=== PATIENT | female | born 1950 | race Caucasian/White ===

== ENCOUNTER 2018-05-19 11:12 | Emergency (ER) | payer OTHER, SELFPAY ==
[2018-05-19] VITALS (14 sets, daily range): BP systolic 108–140; BP diastolic 69–95; PULSE 66–132; RESP 10–21; TEMP 37.1; O2SAT 98–100; BMI 26.2
--- NOTE | 2018-05-19 11:53 | EKG12_ITS ---
Test Reason : Blood Pressure : / mmHG Vent. Rate : 066 BPM Atrial Rate : 066 BPM P-R Int : 174 ms QRS Dur : 088 ms QT Int : 394 ms P-R-T Axes : 078 -65 038 degrees QTc Int : 413 ms Normal sinus rhythm Left anterior fascicular block Cannot rule out Anterior infarct , age undetermined Abnormal ECG Confirmed by BERNICE AMBROSIO, DARLIN ([id number]), electronic news gathering editor BAO RYAN ([id number]) on 05/22/2018 3:22:14 PM Referred By: SOREN Confirmed By:DARLIN QUEEN MD
[2018-05-19 12:01] LABS: Absolute Lymphocyte Count 1.57 X10^3/ul (0.83-4.51); Absolute Neutrophil Count 4.6 X10^3/uL (2.0-7.7); Basophil# 0.02 X10^3/uL; Basophil% 0.3 % (0-1); Eosinophil# 0.07 X10^3/uL; Hematocrit 36.3 % (37-47); Hemoglobin 12.1 g/dl (12.0-15.0); Lymphocyte # 1.57 X10^3/ul (4.0); Lymphocyte % 23.2 % (19-41); Mean Corp Hgb Conc 33.3 g/gl (32-36); Mean Corpuscular Hgb 30.6 pg (27.0-32.0); Mean Corpuscular Volume 91.9 fL (81-99); Mean Platelet Vol. 9.3 fl (6.2-12.0); Monocyte# 0.51 X10^3/uL; Monocyte% 7.5 % (0-10); Neutrophil % 67.9 % (47-70); Platelet Count 261 K/mm3 (150-450); RBC Distribution Width CV 14.5 % (11.6-14.6); RBC Distribution Width SD 48.8 fl (35.1-43.9); Red Blood Count 3.95 M/mm3 (4.2-5.4); White Blood Count 6.8 K/mm3 (4.4-11.0)
[2018-05-19 12:03] LABS: POSITIVE COUNT NO; POSITIVE DIFFERENTIAL NO; POSITIVE MORPHOLOGY NO
--- NOTE | 2018-05-19 12:10 | RAD_ITS ---
STUDY: X-RAY CHEST REASON FOR EXAM: Female, 67 years old. Chest pain. TECHNIQUE: Single AP portable view of the chest. COMPARISON: None. FINDINGS: EKG electrodes are seen. Hyperinflation. There is no demonstrated pleural abnormality. There is mild cardiac enlargement. Normal mediastinum and kt. Normal visualized pulmonary arteries. There is atherosclerotic tortuosity of the aortic arch and descending thoracic aorta. There are diffuse degenerative changes of the visualized thoracic spine. Normal visualized ribs, clavicles, and shoulders. There is no demonstrated abnormality of the visualized soft tissue structures of the upper abdomen. RAD/Chest 1 View (Portable) IMPRESSION: No acute abnormality is seen. Electronically Signed: Román Restrepo MD at 12:36 EST , Service support ,
[2018-05-19] MEDS: dilTIAZem 25 MG/5 ML Vial 10 MG IV BOLUS (12:12)
[2018-05-19 12:19] LABS: ALB/GLOB Ratio 1.3 RATIO (0.9-2.4); AST(SGOT) 22 U/L (15-37); Alanine Aminotransfer ALT/SGPT 27 U/L (13-56); Albumin, Serum 3.8 g/dL (3.2-5.0); Alkaline Phosphatase 67 U/L (45-117); Anion Gap 8 (5-15); BUN 12 mg/dL (7-18); BUN/Creat Ratio 16.2 RATIO (10-20); Calcium,Total 8.6 mg/dL (8.5-10.1); Chloride 103 mmol/L (98-107); Creatinine, Serum 0.74 mg/dL (0.55-1.02); EST Glomerular Filtration Rate 82 mL/min (>60); Est Glom Filt Rate - Afr Amer 100 mL/min (>60); Estimated Creatinine Clearance 43.92 ml/min; Glucose 99 mg/dL (74-106); Potassium 4.4 mmol/L (3.5-5.1); Protein, Total 6.8 g/dL (6.4-8.2); Sodium Level 138 mmol/L (136-145)
[2018-05-19] MEDS: Propofol 200 MG/20 ML Vial IV BOLUS (15:50)
--- NOTE | 2018-05-19 15:55 | EKG12_ITS ---
Test Reason : CP Blood Pressure : / mmHG Vent. Rate : 121 BPM Atrial Rate : 129 BPM P-R Int : 000 ms QRS Dur : 082 ms QT Int : 306 ms P-R-T Axes : 000 -65 054 degrees QTc Int : 434 ms Atrial fibrillation with rapid ventricular response Left anterior fascicular block Abnormal ECG Confirmed by BERNICE AMBROSIO, DARLIN ([id number]), online editor BAO RYAN ([id number]) on 05/22/2018 3:22:28 PM Referred By: SOREN Confirmed By:DARLIN QUEEN MD
--- NOTE | 2018-05-19 16:37 | ED.VISSUMM ---
- ER Visit Summary Date of Service: 05/19/18 Chief Complaint: Atrial fibrillation History of Present Illness: The patient is a 67 F who notes a history of paroxysmal atrial fibrillation. Patient takes diltiazem 360 once a day and metoprolol 25 mg twice a day. She is also on Pradaxa. She denies missing any doses of Pradaxa. She sees cardiology at [place]. She states that on Friday she went into atrial fibrillation and is not come out of it. She feels poorly when she is in it. No syncope. No recent falls. No chest pains. Physical Examination: Afebrile blood pressure 140/72 with a heart rate of 112 respirations are 21 pulse ox 100% Gen: Well-nourished well-developed Head: Normocephalic atraumatic Eyes: Perrl EOMI ENT: TMs clear no rhinorrhea moist mucous membranes Neck: Supple no lymphadenopathy no JVD nontender CVS: Rhythm and tachycardic no murmurs normal S1-S2 Respiratory: No distress clear to auscultation bilaterally chest nontender Abdomen: Soft nontender nondistended normal bowel sounds no masses Back: Nontender Extremity: Nontender no edema Skin: Normal color no rash Neuro: alert orientated ?3 CN II-XII intact normal strength sensation reflexes gait cerebellar Psych: Normal affect normal mood Test Results: EKG shows atrial fibrillation with RVR at a rate of 121. CBC chemistries liver troponin negative. Chest x-ray with a normal mediastinal silhouette Emergency Department Course and Treatment: I spoke with the patient's on-call garment supervisor. As she has not missed any doses of Pradaxa and she has not converted with IV Cardizem plan will be cardioversion. Patient provided informed consent was placed on the monitor. Patient received 0.5 mg/kg bolus of propofol followed by 0.25 mg/kg aliquots until adequate sedation was achieved. Once sedation was achieved a single synchronized 200 J shock was delivered which resulted in normal sinus rhythm. She was allowed to recover. Patient had no episodes of hypotension or apnea during the sedation. She is remained in normal sinus rhythm and repeat EKG was performed. Patient will be discharged home to have early follow-up with her garment supervisor. Impression: 1. Proximal atrial fibrillation with RVR 2. Procedural sedation by physician 3. Electrical cardioversion by physician This note was generated with Dragon dictation software. It may contain incorrect words, spelling, and punctuation that were not noted in review of the chart prior to signing ED Disposition - Plan for ED Patient: Disposition: Home or Assisted Living Chief Complaint: Chest Pain Instructions: Discharge Instructions for Atrial Fibrillation Additional Instructions: Please call your garment supervisor to arrange early follow-up. Continue taking all of your medications including your blood thinner Pradaxa
--- NOTE | 2018-05-19 16:42 | ED.DCSUM_ITS ---
- ER Visit Summary Date of Service: 05/19/18 Chief Complaint: Atrial fibrillation History of Present Illness: The patient is a 67 F who notes a history of paroxysmal atrial fibrillation. Patient takes diltiazem 360 once a day and metoprolol 25 mg twice a day. She is also on Pradaxa. She denies missing any doses of Pradaxa. She sees cardiology at [place]. She states that on Friday she went into atrial fibrillation and is not come out of it. She feels poorly when she is in it. No syncope. No recent falls. No chest pains. Physical Examination: Afebrile blood pressure 140/72 with a heart rate of 112 respirations are 21 pulse ox 100% Gen: Well-nourished well-developed Head: Normocephalic atraumatic Eyes: Perrl EOMI ENT: TMs clear no rhinorrhea moist mucous membranes Neck: Supple no lymphadenopathy no JVD nontender CVS: Rhythm and tachycardic no murmurs normal S1-S2 Respiratory: No distress clear to auscultation bilaterally chest nontender Abdomen: Soft nontender nondistended normal bowel sounds no masses Back: Nontender Extremity: Nontender no edema Skin: Normal color no rash Neuro: alert orientated ?3 CN II-XII intact normal strength sensation reflexes gait cerebellar Psych: Normal affect normal mood Test Results: EKG shows atrial fibrillation with RVR at a rate of 121. CBC chemistries liver troponin negative. Chest x-ray with a normal mediastinal silhouette Emergency Department Course and Treatment: I spoke with the patient's on-call painting trades worker. As she has not missed any doses of Pradaxa and she has not converted with IV Cardizem plan will be cardioversion. Patient provided inform ed consent was placed on the monitor. Patient received 0.5 mg/kg bolus of propofol followed by 0.25 mg/kg aliquots until adequate sedation was achieved. Once sedation was achieved a single synchronized 200 J shock was delivered which resulted in normal sinus rhythm. She was allowed to recover. Patient had no episodes of hypotension or apnea during the sedation. She is remained in normal sinus rhythm and repeat EKG was performed. Patient will be discharged home to have early follow-up with her painting trades worker. Impression: 1. Proximal atrial fibrillation with RVR 2. Procedural sedation by physician 3. Electrical cardioversion by physician This note was generated with Dragon dictation software. It may contain incorrect words, spelling, and punctuation that were not noted in review of the chart prior to signing ED Disposition - Plan for ED Patient: Disposition: Home or Assisted Living Chief Complaint: Chest Pain Instructions: Discharge Instructions for Atrial Fibrillation Additional Instructions: Please call your painting trades worker to arrange early follow-up. Continue taking all of your medications including your blood thinner Pradaxa
== END 2018-05-19 17:10 | disposition home or self-care (01) ==
PROVIDERS: Emergency Provider Emergency Medicine; Family Provider Family Medicine; PCP Family Medicine
DX: I48.0 Paroxysmal atrial fibrillation (principal); K21.9 Gastro-esophageal reflux disease without esophagitis; I10 Essential (primary) hypertension; E78.00 Pure hypercholesterolemia, unspecified; G47.30 Sleep apnea, unspecified; Z79.02 Long term (current) use of antithrombotics/antiplatelets; Z79.899 Other long term (current) drug therapy
CPT/HCPCS: 92960; 71045; 80053; 84484; 85025; 93005; 96374; 96375; 99284; J7040; A4216

== ENCOUNTER → 2018-05-26 12:14 | Outpatient (CLI) | payer OTHER, SELFPAY ==
[2018-05-26 11:00] VITALS: BMI 24.7
[2018-05-26 12:57] LABS: T4 Total, Thyroxin 7.4 ug/dL (4.8-13.9); Thyroid Stim Hormone (TSH) 1.94 uIU/mL (0.358-3.74)
== END ==
PROVIDERS: Family Provider Family Medicine; PCP Family Medicine; Referring Provider Internal Medicine Cardiovascular Disease; Visit Provider Internal Medicine Cardiovascular Disease
DX: I48.91 Unspecified atrial fibrillation (principal)
CPT/HCPCS: 36415; 84436; 84443

== ENCOUNTER → 2018-06-15 08:39 | Outpatient (CLI) | payer SELFPAY ==
[2018-05-26 11:00] VITALS: BMI 24.7
--- NOTE | 2018-06-15 08:40 | STE_ITS ---
Reason For Study: Chest pain Stress Results Protocol: MODIFIED AARON Maximum Predicted HR: 151 bpm Target HR: 128 bpm % Maximum Predicted HR: 159 % Heart Stage Duration Rate BP Comment (mm:ss) (bpm) BASELINE 72 142/74 NO CHEST PAIN, NO SOB, STATES FEELS SLIGHTLY FUNNY IN THE HEAD, STAGE 0 3:00 121 152/82ENCOURAGED TO LOOK FORWARD States feeling more dizziness, while walking. BP attempted to be STAGE obtained, she then states her dizziness worse. EKG showed SVT. Stopped 04/22 2:41 240 / Treadmill. Echo obtained.Had her valsalva manuver and cough, heart rate decreased to 205. Dr. Moore came to room. Recovery 95 130/70 Stress Duration: 5:41 mm:ss Maximum Stress HR: 240 bpm Baseline Echocardiogram Findings The estimated ejection fraction is 65 %. Stress Echo Wall motion Data Resting WM Intermediate WM Stress WM Resting Wall Motion Wall Motion Stress No regional wall motion No regional wall motion abnormalities noted. abnormalities noted. EKG Data Normal intervals are noted. Interpretation Summary Heart rate decreased and converted back to Normal Sinus Rhythm. Vitals Stable. Patient dressed and snack given. She was released home with family. The estimated ejection fraction is 65 %. Normal, adequate, modified Aaron treadmill echocardiogram. Negative for ischemia by EKG and echocardiographic criteria. No anginal symptoms noted. Patient did develop supraventricular tachycardia at a rate of 144-222 bpm at 5 minutes 35 seconds into modified Aaron exercise. SVT persisted until 4 minutes 10 seconds into recovery and spontaneously broke with vagal maneuvers. During recovery she had rare PVCs and ventricular couplets and rare PACs. No associated wall motion abnormalities noted on echocardiogram. Appropriate blood pressure response to exercise. Decreased exercise capacity for age. Final LVEF is 75%. Ordering Physician: Chapo Melendez MD Referring Physician: Chapo Melendez MD Performed By: Mary Ellen Raymundo RDCS, RVT
--- NOTE | 2018-06-15 08:40 | ECHOD_ITS ---
Reason For Study: AFIB Procedure This was a 2D Doppler, Color Flow transthoracic echocardiogram. Exam performed in department. Left Ventricle Normal size and thickness. The estimated ejection fraction is 65 %. Normal diastology for age. No regional wall motion abnormalities noted. Right Ventricle Normal size and thickness. Normal systolic function. Atria Normal left atrium. Normal right atrium. Normal atrial septum. Mitral Valve Mild diffuse mitral valve thickening. Moderate mitral annular calcification extending into the posterior leaflet. Equivocal mitral valve prolapse. Mild (1+) eccentric mitral valve insufficiency. Tricuspid Valve Normal tricuspid valve. Mild to moderate (1-2+) eccentric tricuspid valve insufficiency. Right ventricular systolic pressure estimated to be 38 mmHg. Mild pulmonary hypertension. Aortic Valve Trisinus/trileaflet aortic valve. Mild focal aortic valve thickening. Mild diffuse aortic valve thickening. There is no aortic stenosis. Pulmonic Valve Normal pulmonic valve. Great Vessels Normal aortic root. Normal arch. Normal inferior vena cava. Inferior vena cava collapse with sniff. Pericardium/Pleural No pericardial effusion. MMode/2D Measurements & Calculations LVIDd: 4.6 cm IVSd: 0.90 cm Ao root diam: 3.8 cm LVIDs: 3.1 cm LVPWd: 0.89 cm RVDd: 4.0 cm FS: 32.0 % LAV(MOD-bp): 53.8 ml LA A4 area: 20.9 cm2 LA dimension(2D): 3.9 cm LAV(MOD-bp) Indexed: 31.6 ml/m2 LAV(MOD-sp2): 45.2 ml LAV(MOD-sp4): 63.3 ml RA A4 area: 13.6 cm2 Time Measurements MV dec time: 0.30 sec Doppler Measurements & Calculations MV E max josé miguel: 82.1 cm/sec Lat Peak E' José Miguel: 12.1 cm/sec Med Peak E' José Miguel: 8.2 cm/sec MV A max josé miguel: 74.5 cm/sec E/E' lat: 6.8 E/E' med: 10.0 MV E/A: 1.1 MV V2 max: 92.3 cm/sec Ao V2 max: 126.7 cm/sec LV V1 max: 106.7 cm/sec MV max P.4 mmHg Ao max P.4 mmHg LV V1 max P.6 mmHg MV V2 mean: 58.9 cm/sec Ao V2 mean: 90.1 cm/sec LV V1 mean P.4 mmHg MV mean P.5 mmHg Ao mean P.6 mmHg LV V1 mean: 71.5 cm/sec MV V2 VTI: 22.4 cm Ao V2 VTI: 28.3 cm LV V1 VTI: 23.3 cm PA V2 max: 92.8 cm/sec TR max josé miguel: 277.9 cm/sec MV P1/2t-pr_phl: 45.8 msec TR max P.9 mmHg Interpretation Summary The estimated ejection fraction is 65 %. Normal diastology for age. Mild (1+) eccentric mitral valve insufficiency. Mild to moderate (1-2+) eccentric tricuspid valve insufficiency. Right ventricular systolic pressure estimated to be 38 mmHg. Mild pulmonary hypertension. Equivocal mitral valve prolapse. There is no comparison study available. Ordering Physician: Chapo Melendez Referring Physician: SANGEETA ASHRAF Performed By: Korin Melvin RDCS, RVT
== END ==
PROVIDERS: Family Provider Family Medicine; PCP Family Medicine; Visit Provider Internal Medicine Cardiovascular Disease
DX: R07.89 Other chest pain (principal); I36.1 Nonrheumatic tricuspid (valve) insufficiency; I48.91 Unspecified atrial fibrillation
CPT/HCPCS: 93017; 93306; 93350; J0153

== ENCOUNTER 2018-06-29 14:22 | Emergency (ER) | payer OTHER, SELFPAY ==
[2018-05-26 11:00] VITALS: BMI 24.7
[2018-06-29 14:24] VITALS: BP 157/85; PULSE 84; RESP 16; TEMP 36.4; O2SAT 100; BMI 24.0
[2018-06-29 16:42] VITALS: BP 142/93; PULSE 87; RESP 16; O2SAT 100
[2018-06-29 16:44] LABS: Absolute Lymphocyte Count 2.43 X10^3/ul (0.83-4.51); Absolute Neutrophil Count 6.7 X10^3/uL (2.0-7.7); Basophil# 0.04 X10^3/uL; Basophil% 0.4 % (0-1); Eosinophil# 0.04 X10^3/uL; Eosinophils% 0.4 % (0-5); Hematocrit 40.4 % (37-47); Hemoglobin 13.8 g/dl (12.0-15.0); Lymphocyte # 2.43 X10^3/ul (4.0); Lymphocyte % 23.8 % (19-41); Mean Corp Hgb Conc 34.2 g/gl (32-36); Mean Corpuscular Volume 90.8 fL (81-99); Mean Platelet Vol. 9.1 fl (6.2-12.0); Monocyte# 0.96 X10^3/uL; Monocyte% 9.4 % (0-10); Neutrophil # 6.71 X10^3/uL (2.7-7.7); Neutrophil % 65.8 % (47-70); POSITIVE COUNT NO; POSITIVE DIFFERENTIAL NO; POSITIVE MORPHOLOGY NO; Platelet Count 361 K/mm3 (150-450); RBC Distribution Width CV 14.2 % (11.6-14.6); RBC Distribution Width SD 47.4 fl (35.1-43.9); Red Blood Count 4.45 M/mm3 (4.2-5.4); White Blood Count 10.2 K/mm3 (4.4-11.0)
--- NOTE | 2018-06-29 16:53 | EKG12_ITS ---
Test Reason : ABNL PAIN Blood Pressure : / mmHG Vent. Rate : 086 BPM Atrial Rate : 086 BPM P-R Int : 122 ms QRS Dur : 082 ms QT Int : 360 ms P-R-T Axes : 056 -65 001 degrees QTc Int : 430 ms Normal sinus rhythm Left axis deviation Inferior infarct , age undetermined Abnormal ECG Confirmed by BERNICE AMBROSIO, DARLIN ([id number]), digital editor ALMA BORRERO ([id number]) on 07/02/2018 10:54:17 AM Referred By: CHANTAL Confirmed By:DARLIN QUEEN MD
--- NOTE | 2018-06-29 16:55 | RAD_ITS ---
STUDY: X-RAY CHEST REASON FOR EXAM: Female, 67 years old. Acute chest pain TECHNIQUE: Single AP portable view of the chest. COMPARISON: 05/19/2018 FINDINGS: EKG leads overlie the chest The lungs are clear and expanded. There is no demonstrated pleural abnormality. Normal size heart. Normal mediastinum and kt. Normal visualized pulmonary arteries. Normal visualized aortic arch and descending thoracic aorta. Normal visualized thoracic spine. Normal visualized ribs, clavicles, and shoulders. There is no demonstrated abnormality of the visualized soft tissue structures of the upper abdomen. RAD/Chest 1 View (Portable) IMPRESSION: Normal x-ray examination of the chest. Electronically Signed: Martin Boyle MD at 17:19 EDT , Service support ,
[2018-06-29 16:57] VITALS: O2SAT 99
[2018-06-29 17:00] LABS: ALB/GLOB Ratio 1.3 RATIO (0.9-2.4); AST(SGOT) 29 U/L (15-37); Alanine Aminotransfer ALT/SGPT 32 U/L (13-56); Albumin, Serum 4.5 g/dL (3.2-5.0); Alkaline Phosphatase 80 U/L (45-117); Anion Gap 10 (5-15); BUN 8 mg/dL (7-18); BUN/Creat Ratio 11.8 RATIO (10-20); Calcium,Total 9.1 mg/dL (8.5-10.1); Chloride 93 mmol/L (98-107); Creatinine, Serum 0.68 mg/dL (0.55-1.02); EST Glomerular Filtration Rate 91 mL/min (>60); Est Glom Filt Rate - Afr Amer 110 mL/min (>60); Estimated Creatinine Clearance 45.85 ml/min; Globulin 3.5 g/dL (2.2-4.2); Glucose 91 mg/dL (74-106); Lipase 298 U/L (73-393); Potassium 3.5 mmol/L (3.5-5.1); Sodium Level 132 mmol/L (136-145)
[2018-06-29] MEDS: Mag Hydrox/Al Hydrox/Simeth 30 ML UDC PO (18:10)
[2018-06-29 18:18] VITALS: BP 116/76; PULSE 76; RESP 18; O2SAT 98
--- NOTE | 2018-06-29 19:07 | ED.VISSUMM ---
- ER Visit Summary Date of Service: 06/29/18 Chief Complaint: Heartburn History of Present Illness: The patient is a 67 F with heartburn symptoms for weeks. The patient feels a burning pressure in her epigastric region. Worse after eating. Nothing makes it better. She has been taking Prilosec. It makes her feel weak. She denies any history of coronary disease or stent or bypass. She has had an abnormal heart rhythm but is not on blood thinners. No respiratory symptoms. No cardiac symptoms. Physical Examination: Afebrile and vital signs unremarkable. Patient is alert and oriented. No acute distress. Skin normal in color without pallor or diaphoresis. Heart regular rate and rhythm. Lungs clear. Abdomen soft and nontender. No guarding or rebound. Extremities nontender. Test Results: EKG showed sinus rhythm at a rate of 86. No signs of acute ischemia or infarction pattern. CBC normal. Chemistry panel unremarkable. Troponin normal. Chest x-ray normal. Emergency Department Course and Treatment: Patient had a GI cocktail and had improvement of her symptoms. I believe her pain is GI in nature. There is nothing to suggest coronary, respiratory, vascular pathologies. No other imaging or testing emergently indicated. Patient will continue Prilosec. Will prescribe Carafate. I believe she would benefit from an upper endoscopy. Dr. Morrell was on-call and she was given a referral. Treatment Plan: As above Disposition: Discharge Impression: 1. Epigastric pain This note was generated with [employer] dictation software. It may contain incorrect words, spelling, and punctuation that were not noted in review of the chart prior to signing ED Disposition - Plan for ED Patient: Referrals: Jordon King DO [Primary Care Provider] -
--- NOTE | 2018-06-29 19:10 | ED.DEP ---
ED Disposition - Plan for ED Patient: Instructions: ED Abdominal Pain Unkn Cause Prescriptions: Sucralfate [Carafate] 1 gm PO 4X/DAY #56 tab Referrals: Pavel Micntosh MD [STAFF PHYSICIAN] -
[2018-06-29 19:38] VITALS: RESP 16
== END 2018-06-29 19:39 | disposition home or self-care (01) ==
LOC: ED 16:57
PROVIDERS: Emergency Medicine; Emergency Provider Emergency Medicine; Family Provider Family Medicine; PCP Family Medicine
DX: R10.13 Epigastric pain (principal); K21.9 Gastro-esophageal reflux disease without esophagitis; Z79.899 Other long term (current) drug therapy
CPT/HCPCS: 71045; 80053; 83690; 84484; 85025; 93005; 99285; A4216